=== PATIENT | female | born 1965 | race African-American/Black ===

== ENCOUNTER 2024-06-06 22:07 | Emergency (ER) | payer SELFPAY ==
[~2024-06-06] VITALS: Ht 170.2 cm; Wt 121.8 kg
[2024-06-06 22:55] VITALS: BP 155/71; PULSE 76; RESP 20; TEMP 98.2; O2SAT 100
[2024-06-06] MEDS: IBUPROFEN 600 MG TABLET PO ONE (23:27)
[2024-06-06] MEDS: ACETAMINOPHEN 500 MG TABLET PO ONE (23:28)
== END 2024-06-06 23:29 ==
LOC: EMS 22:07
DX: S00.532A Contusion of oral cavity, initial encounter (principal); R51.9 Headache, unspecified; G89.29 Other chronic pain; Z65.3 Problems related to other legal circumstances; Z02.89 Encounter for other administrative examinations; X58.XXXA Exposure to other specified factors, initial encounter; Y93.89 Activity, other specified; Y92.89 Other specified places as the place of occurrence of the external cause; Y99.8 Other external cause status
CPT/HCPCS: 99283